=== PATIENT | male | born 1990 | race Caucasian/White ===

== ENCOUNTER 2017-08-07 12:09 | Emergency (ER) | payer SELFPAY ==
[~2017-08-07 12:09] MED LIST: ISOVUE-370 76%-LOCM 1 ML ONE
[2017-08-07] MEDS ORDERED: Fentanyl 100 MCG/2 ML VIAL ONE (13:23)
[2017-08-07] MEDS ORDERED: Adacel (T-DAP) 0.5 ML VIAL ONE (13:23)
[2017-08-07] MEDS ORDERED: Ketorolac Tromethamine 30 MG/ML VIAL ONE (13:34)
[2017-08-07] MEDS ORDERED: Bacitracin Zinc 1 Packet ONE (14:09)
[2017-08-07] MEDS ORDERED: Lidocaine 1% w/Epinephrine 1:100K 20 ML VIAL ONE (14:48)
--- NOTE | 2017-08-07 14:50 | CT ---
CT OF HEAD NONCONTRAST: CLINICAL HISTORY: Level II trauma, fall from horse. FINDINGS: No evidence of ventriculomegaly, mass effect, midline shift, or acute intracranial hemorrhage. Nicholas rium is intact. No pneumocephalus. IMPRESSION: No acute intracranial abnormalities. Notification of findings placed at 1254 hours 08/07/17. CODE CR POS: [facility]
--- NOTE | 2017-08-07 14:51 | CT ---
CERVICAL SPINE CT: INDICATION: Neck injury, fall from horse, pain. FINDINGS: Craniocervical junction is intact. Slight reversal of normal cervical lordosis centered at the mid c ervical spine may be positional. Correlate clinically. There is no compression fracture, subluxatio n, or retropulsion of bone evident. No acute facet malalignment. IMPRESSION: No acute osseous abnormality of the cervical spine. Notification of findings placed at 1256 hours 08/07/17. CODE CR POS: [facility]
--- NOTE | 2017-08-07 14:58 | CT ---
CT CHEST WITH CONTRAST CT ABDOMEN WITH CONTRAST CT PELVIS WITH CONTRAST: History Bucked off a horse. Injury. COMPARISON: None. FINDINGS: The lungs are clear. No pneumothorax. No pneumatocele. No effusion. Small calcified granuloma in the lingula. No pericardial effusion. No acute aortic injury. No mediastinal hematoma. Subcarinal calcified lymph nodes are present. The iliac contours are stefanie l. The visualized portion of the shoulders, clavicles, sternum, and manubrium are all intact. No displa gladis rib fracture. No paraspinal muscle hematoma. No soft tissue contusion. Iliopsoas muscles are without injury. No mesenteric edema nor hemorrhage. Calcified granulomas of the spleen are present. No liver laceratio n. The gallbladder is unremarkable. The appendix is visualized and is normal. The osseous pelvis is intact. No fracture. No malalignment. IMPRESSION: No traumatic abnormality in the chest, abdomen, nor pelvis. POS: [facility]
--- NOTE | 2017-08-07 15:00 | CT ---
CT FACE NONCONTRAST: INDICATION: Posttraumatic injury, pain related to fall from a horse. FINDINGS: Orbital gaytan are intact. No retrobulbar hematoma or mass effect. Each zygomatic arch is normal in appearance. No acute fluid level of the imaged paranasal sinuses. No displaced nasal bone fracture. Temporomandibular joints maintain appropriate alignment. IMPRESSION: No acute, displaced visual fracture. Notification of findings placed at 1258 hours, 08/07/17. CODE CR POS: [facility]
--- NOTE | 2017-08-07 15:07 | RAD ---
RIGHT WRIST 3 VIEWS: HISTORY: Trauma. COMPARISON: None. FINDINGS: There is a fracture of the scaphoid waist with lateral displacement of the distal fragment. There is also volar displacement of the proximal pole. IMPRESSION: Complete scaphoid waist fracture with volar displacement of the proximal pole. POS: [facility]
--- NOTE | 2017-08-07 15:08 | RAD ---
RIGHT HUMERUS 2 VIEWS: History Trauma. COMPARISON: None. FINDINGS: Humerus is intact. IMPRESSION: Humerus is intact. POS: [facility]
--- NOTE | 2017-08-07 15:08 | RAD ---
RIGHT FOREARM 2 VIEWS: HISTORY: Trauma. COMPARISON: None. FINDINGS: No fracture. No malalignment. Soft tissues are unremarkable. IMPRESSION: Intact forearm. Please see dedicated wrist radiograph. POS: [facility]
--- NOTE | 2017-08-07 15:09 | RAD ---
RIGHT ELBOW 4 VIEWS: HISTORY: Injury. Trauma. COMPARISON: None. FINDINGS: No acute displaced fracture or malalignment. IMPRESSION: No acute displaced fracture or malalignment. POS: [facility]
--- NOTE | 2017-08-07 15:11 | RAD ---
CHEST 1 VIEW: HISTORY: Trauma. COMPARISON: Chest, abdomen, and pelvis CT same day. FINDINGS: The lungs are clear. No pneumothorax or effusion. Cardiac silhouette and mediastinal contours withi n normal limits. IMPRESSION: No acute intrathoracic abnormality. POS: [facility]
--- NOTE | 2017-08-07 15:39 | RAD ---
LEFT KNEE 2 VIEWS: HISTORY: Ejection from livestock. COMPARISON: None. FINDINGS: No significant joint effusion. No displaced fracture or malalignment. Soft tissues are unremarkable . Evidence of old [place]-Schlatter's disease. IMPRESSION: No acute abnormality. POS: [facility]
== END 2017-08-07 15:15 | disposition home or self-care (01) ==
LOC: ERS 12:09
DX: S62.031A Displaced fracture of proximal third of navicular [scaphoid] bone of right wrist, initial encounter for closed fracture (principal); S00.83XA Contusion of other part of head, initial encounter; S80.02XA Contusion of left knee, initial encounter; S20.319A Abrasion of unspecified front wall of thorax, initial encounter; V80.010A Animal-rider injured by fall from or being thrown from horse in noncollision accident, initial encounter
CPT/HCPCS: 12011; 70450; 70486; 71045; 71260; 72125; 74177; 90471; 90715; 94760; G0390; J1885; J2001; J3010

== ENCOUNTER 2017-08-17 08:22 | Day surgery (SDC) | payer OTHER, SELFPAY ==
[2017-08-16 12:19] VITALS: BMI 22.9
[2017-08-17] MEDS ORDERED: Fentanyl 100 MCG/2 ML VIAL ONE ×3 (09:50→12:50)
[2017-08-17] MEDS ORDERED: Midazolam HCl 2 mg/2 ml Vial ONE (09:50)
[2017-08-17] MEDS ORDERED: Ondansetron HCl/PF 4 MG/2 ML Vial ONE ×2 (10:17→13:12)
[2017-08-17] MEDS ORDERED: CEFAZOLIN/Water 2 GM/20 ML SYRINGE ONE (10:20)
[2017-08-17] MEDS ORDERED: hydrALAZINE 20 MG/ML VIAL ONE (12:59)
[2017-08-17] MEDS ORDERED: Ketorolac Tromethamine 30 MG/ML VIAL ONE (13:02)
[2017-08-17] MEDS ORDERED: Bupivacaine HCl 0.5%/Epinephrine 1:200,000/PF 30 ml Vial ONE (13:06)
[2017-08-17] MEDS ORDERED: PROPOFOL 200 MG/20 ML VIAL ONE (13:12)
[2017-08-17] MEDS ORDERED: Dexamethasone 20 MG/5 ML VIAL ONE (13:12)
[2017-08-17] MEDS ORDERED: HYDROcodone/Acetaminophen 5/325 mg Tablet ONE (13:49)
--- NOTE | 2017-08-17 14:03 | OP ---
DATE OF OPERATION: 08/17/2017 PREOPERATIVE DIAGNOSES: 1. Fracture dislocation of the waist and the scaphoid of the right wrist. 2. Dorsal dislocation of the capitolunate joint of the right wrist. POSTOPERATIVE DIAGNOSES: 1. Fracture dislocation of the waist and the scaphoid of the right wrist. 2. Dorsal dislocation of the capitolunate joint of the right wrist. PROCEDURES PERFORMED: Open reduction and internal fixation of fracture dislocation of the right scap hoid and of the dorsal capitolunate dislocation of the right wrist. SURGEON: Jhony Blackwell M.D. ANESTHESIA: General. TECHNIQUE: The patient was given preoperative IV antibiotics, taken to the operating room and placed in supine position. Satisfactory general anesthesia was performed. Right upper extremity was steri day prepped and draped in usual fashion. After exsanguination, the tourniquet was raised to 250 mmH g. Initially, a longitudinal incision was made over the right wrist over the area of the scaphoid. Blunt dissection was made. The extensor carpi radialis tendon was located and retracted out of the w ay. There was some tearing of the dorsal ligaments over the area of the scaphoid, but also in the ar ea of the capitolunate joint. The capitate was notably dislocated dorsally. There was half on the p roximal portion of the scaphoid that had dislocated volarly and additional incision was made on the v olar radial aspect of the wrist over the area of the flexure carpi radialis and the proximal half of the scaphoid was located and reduced back into its normal position. The proximal and distal half of the scaphoid had comminution. Some small fragments were removed. The proximal and distal halves wer e brought together and held together with compression and 2 guidewires were placed in the scaphoid fr om a dorsal and proximal to distal. This was all performed under fluoroscopy. A 2.4 headless screw was placed and this provided good fixation and good position of the right scaphoid. The dorsal dislo cation of the capitolunate joint was held reduced and then internally fixed using a two 0.045 K-wires in a crossing fashion from the dorsal aspect of the capitate into the lunate. Again, this was all p erformed under fluoroscopic visualization, which showed good position and good reduction of the scaph oid as well as the capitolunate joint. The wounds were then copiously irrigated with antibiotic solu tion. The ligaments that were torn dorsally at the capitolunate joint were closed using 0 Vicryl in interrupted [id number] sutures. The ligament torn on the volar aspect of the scaphoid had dislo cated, was also repaired with the 0 Vicryl and skin was closed with 3-0 Rapide. Sterile dressing was applied along with a short-arm thumb spica splint. Tourniquet was released. The patient was awaken ed, extubated, and transferred to recovery room in stable condition. ESTIMATED BLOOD LOSS: None. COMPLICATIONS: None. TOURNIQUET TIME: 91 minutes.
--- NOTE | 2017-08-17 15:39 | RAD ---
THREE VIEWS OF THE RIGHT WRIST: 08/17/17 COMPARISON: 08/07/17 HISTORY: Scaphoid fracture status post ORIF. FINDINGS/IMPRESSION: Four limited intraoperative fluoroscopic views of the right wrist were submitted for interpretation. A Arian screw is seen within the scaphoid. There are also K-wires spanning the carpal bones. The fr acture of the scaphoid is better aligned. POS: [facility]
== END 2017-08-17 14:00 | disposition home or self-care (01) ==
LOC: SDC 08:22
PROVIDERS: ATTEND Orthopaedic Surgery
PROC: 0PSM04Z Reposition Right Carpal with Internal Fixation Device, Open Approach (ICD-10-PCS; principal; 2017-08-17)
DX: S62.011A Displaced fracture of distal pole of navicular [scaphoid] bone of right wrist, initial encounter for closed fracture (principal); S62.031A Displaced fracture of proximal third of navicular [scaphoid] bone of right wrist, initial encounter for closed fracture; S63.094A Other dislocation of right wrist and hand, initial encounter; V80.010A Animal-rider injured by fall from or being thrown from horse in noncollision accident, initial encounter
CPT/HCPCS: 76001; C1713; J0360; J0670; J1100; J1885; J2250; J2405; J2704; J3010

== ENCOUNTER 2018-05-20 22:20 | Emergency (ER) | payer SELFPAY ==
[2018-05-20] MEDS ORDERED: Ondansetron PF 4 MG/2 ML Vial ONE (23:35)
[2018-05-21 00:24] LABS: #Basophils 0.1 thou/uL (0.0-0.2); #Eosinphils 0.1 thou/uL (0.0-0.7); #Lymphocytes 0.8 thou/uL (1.20-3.40); #Monocytes 0.6 thou/uL (0.11-0.59); #Neutrophils 11.5 thou/uL (1.40-6.50); %Basophils 0.9 % (0.0-1.0); %Eosinophils 0.5 % (0.0-10.0); %Lymphocytes 6.1 % (21.0-51.0); %Monocytes 4.7 % (0.0-10.0); %Neutrophils 87.8 % (42.0-75.0); Hemoglobin 17.2 g/dL (14.0-18.0); Mean Corpuscular HGB CONC 33.1 g/dL (32.0-36.0); Mean Corpuscular Hemoglobin 29.5 pg (27.0-31.0); Mean Corpuscular Volume 89.3 fL (78.0-98.0); Mean Platelet Volume 7.2 fL (7.4-10.4); Platelet Count 265 thou/uL (130-400); RBC Distribution Width 11.8 % (11.5-14.5); Red Blood Cell (RBC) Count 5.81 mill/uL (4.70-6.10); White Blood Cell (WBC) Count 13.1 thou/uL (4.8-10.8)
[2018-05-21 00:46] LABS: ALT (SGPT) 21 U/L (8-55); AST (SGOT) 16 U/L (5-34); Albumin 4.3 g/dL (3.5-5.0); Alkaline Phosphatase 38 U/L (40-150); Anion Gap 17 mmol/L (10-20); BUN (Urea Nitrogen) 12 mg/dL (8.9-20.6); Bilirubin, Total 0.5 mg/dL (0.2-1.2); Calc. Creatinine Clearance 0 mL/min (70-130); Calcium 9.3 mg/dL (7.8-10.44); Carbon Dioxide 22 mmol/L (22-29); Chloride 103 mmol/L (98-107); Estimated GFR-MDRD Greater than 90; Globulin 3.4 g/dL (2.4-3.5); Glucose 102 mg/dL (70-105); Potassium 4.3 mmol/L (3.5-5.1); Protein, Total 7.7 g/dL (6.0-8.3); Sodium 138 mmol/L (136-145)
[2018-05-21] MEDS ORDERED: Ketorolac Tromethamine 30 MG/ML VIAL ONE (00:53)
[2018-05-21] MEDS ORDERED: cefTRIAXone\\ROCEPHIN 250 MG VIAL ONE (00:53)
--- NOTE | 2018-05-21 07:57 | ULT ---
PRELIMINARY REPORT/[facility]/EMERGENTY AFTER-HOURS PROCEDURE US Scrotum and US Duplex Artery and Vein, Scrotum, Complete EXAM DATE/TIME: 05/20/2018 11:42 PM CLINICAL HISTORY: 28 years old, male; Signs and symptoms; Other: PT felt lt lateral test mass x 3mo TECHNIQUE: Real-time ultrasound of the scrotum. Real-time duplex ultrasound scan of the arterial and venous flow of the scrotum with B-mode, color Doppler flow and spectral waveform analysis. Complete exam. COMPARISON: No relevant prior studies available. FINDINGS: Scrotal ultrasound was performed. Duplex ultrasound scan with color Doppler flow and spectral wavefor m analysis was also performed for evaluation of testicular blood flow and to rule out torsion. Right Testicle: No acute findings. No mass. Normal duplex of the ovary. No evidence of torsion. Small right testicular appendix. Left Testicle: No acute findings. No mass. Normal duplex of the ovary. No evidence of torsion. Epididymides: Enlarged heterogeneous left epididymis likely representing epididymitis. Small left epi didymal cyst. Unremarkable right epididymis. Scrotum: Mild bilateral hydroceles. IMPRESSION: Left epididymitis. Mild bilateral hydroceles. No testicular mass or torsion. Thank you for allowing us to participate in the care of your patient. Dictated and Authenticated by: Attila Hameed MD 05/21/2018 12:43 AM Central Time ([place] & [place]) [facility]: DATE: 05/20/2018. COMPARISON: None. HISTORY: Left lateral palpable abnormality. TECHNIQUE: Multiplanar, fischer scale sonographic imaging of the scrotal contents obtained. Testicles are assessed with color flow and spectral analysis. FINDINGS: The right testicle measures 4.2 x 2.3 x 3.3 cm and demonstrates normal blood flow without evidence fo r mass. Small testicular appendage suggested in the upper pole region measuring 5 x 2 mm. The left testicle measures 3.6 x 2.4 x 3.1 cm and demonstrates blood flow without evidence for mass. There is a small epididymal head cyst measuring 3 x 2 mm. Trace bilateral hydroceles are noted. The mid portion and tail of the epididymis appear enlarged but demonstrate no increased blood flow. Significance is uncertain. Chronic epididymitis cannot be fully excluded in the proper clinical sett ing. Right epididymal head appears grossly unremarkable. IMPRESSION: Small bilateral hydroceles. No testicular abnormality. Nonspecific mild enlargement of the mid port ion and tail of the left epididymis. Followup imaging advised as clinically warranted. POS: [facility]
== END 2018-05-21 01:20 | disposition home or self-care (01) ==
LOC: ERS 22:20
DX: N45.1 Epididymitis (principal)
CPT/HCPCS: 76870; 80053; 82105; 85025; 93976; 96365; 96375; J0696; J1885; J2405

== ENCOUNTER 2018-07-27 23:39 | Emergency (ER) | payer SELFPAY ==
[2018-07-28 00:34] LABS: Bilirubin Negative (Negative); Blood, Urine Negative (Negative); Clarity Slightly Cloudy (Clear); Glucose, Urine (Dipstick) Negative (Negative); Leukocyte Negative (Negative); Nitrite Negative (Negative); Protein, Urine (Dipstick) Negative (Neg-Trace); Specific Gravity, Urine 1.025 (1.005-1.030); Urobilinogen 0.2 mg/dL (0.2-1.0); pH, Urine 5.5 (5.0-9.0)
[2018-07-28] MEDS ORDERED: cefTRIAXone\\ROCEPHIN 250 MG VIAL ONE (01:26)
[2018-07-28] MEDS ORDERED: Lidocaine 1% PF 5 ML VIAL ONE (01:26)
--- NOTE | 2018-07-28 08:17 | ULT ---
PRELIMINARY REPORT/[facility]/EMERGENCY AFTER HOURS PROCEDURE: EXAM: US Scrotum EXAM DATE/TIME: 07/28/2018 12:21 AM CLINICAL HISTORY: 28 years old, male; Pain; Scrotum pain; Patient HX: Left testicular pain x 1 day, worse pain after ur inating TECHNIQUE: Imaging protocol: Real-time ultrasound of the scrotum and contents with color Doppler and image docum entation. COMPARISON: No relevant prior studies available. FINDINGS: Right Testicle: The right testicle measures 3.1 x 4.2 x 2.4 cm. Normal flow by color Doppler and spec tral waveform analysis of the arterial and venous flow. No testicular mass. Left Testicle: The left testicle measures 3.3 x 3.7 x 2.1 cm. Normal flow by color Doppler and spectr al waveform analysis of the arterial and venous flow. No testicular mass. Epididymides: Normal appearance of the right epididymis. Mildly enlarged and hypervascular left epidi dymal body and tail. Left epididymal head 3 mm cysts. Scrotum: Trace right hydrocele. Trace left hydrocele. IMPRESSION: 1. Findings suggest left epididymitis. 2. Normal sonographic appearance of the testicles without evidence of torsion. Thank you for allowing us to participate in the care of your patient. Dictated and Authenticated by: Jenni Velasco MD 07/28/2018 1:00 AM Central Time ([place] & [place]) FINAL REPORT [facility]: DATE: 07/28/2018. COMPARISON: None. HISTORY: A 1-day history of left-sided testicular pain. TECHNIQUE: Multiplanar, fischer scale sonographic imaging of the scrotal contents with Doppler interrogation of the testicles including color flow and spectral analysis. FINDINGS: Left testicle measures 3.3 x 3.7 x 2.1 cm and the right testicle measures 3.1 x 4.2 x 2.4 cm. Normal symmetric blood flow is documented within the testicles. There is no intratesticular mass on either side. No evidence for hydrocele on either side. Right epididymal head measures 1.1 x 0.8 cm. The left epididymal head measures 1.0 x 0.7 cm. Of not e, the body and tail of the epididymis appears somewhat prominent and hyperemic. Findings may signif y left epididymitis in the proper clinical setting. IMPRESSION: Question left epididymitis. POS: [facility]
[2018-07-29 21:02] LABS: Chlamydia by PCR Not Detected (NotDetected); GC by PCR Not Detected (NotDetected)
== END 2018-07-28 01:10 | disposition home or self-care (01) ==
LOC: SCSER 23:39
DX: N45.1 Epididymitis (principal)
CPT/HCPCS: 76870; 81003; 87491; 87591; 93976; 96372; J0696; J2001